=== PATIENT | female | born 1930 | race African-American/Black ===

== ENCOUNTER 2016-11-14 19:15 | Inpatient (IN) | payer MEDICAID, MEDICARE ==
[~2016-11-14] VITALS: Ht 170.2 cm; Wt 70.3 kg
[~2016-11-14 19:15] MED LIST: ALBU2.5V13 IH; ALEN70TA46 PO; ASPI-518 PO; BENZ100C86 PO; CALC-586 PO; CHOL100026 PO; DILT120T13 PO; EZET1TAB36 PO; FLUT1DIS3 IH; GUAI600T PO; HYDR12.54 PO; LETR2.5T3 PO; LEVO250T2 PO; MONT10TA21 PO; MULT-783 PO; P20 PO; RAMI10CA19 PO; TESS PO; THEO200T37 PO; TIOT18CA3 IH
[2016-11-14 20:17] LABS: HEMATOCRIT. 31.4 % (36.0-48.0); HEMOGLOBIN. 10.5 g/dL (12.0-16.0); MEAN CORPUSCULAR HEMOGLOBIN 26.9 pg (28.0-32.0); MEAN CORPUSCULAR VOLUME 80.1 fL (81.0-99.0); MEAN PLATELET VOLUME 8.9 fl (7.4-10.4); PLATELET 128 x1000/uL (130-400); RED BLOOD CELL COUNT 3.92 mill/uL (4.2-5.4); RED CELL DISTRIBUTION WIDTH 15.6 % (11.6-14.6)
[2016-11-14 20:23] LABS: INR 0.9; PROTHROMBIN TIME 9.7 sec
[2016-11-14 20:32] LABS: CARBON DIOXIDE 30 mEq/L (21-32); CHLORIDE 104 mEq/L (98-107); TROPONIN I < 0.02 ng/mL (0.00-0.04)
[2016-11-14 21:00] LABS: PLATELET ESTIMATE NORMAL
[2016-11-14] MEDS ORDERED: LEVOFLOXACIN 750MG PREMIX 150 ML IV ONE (21:00)
[2016-11-14] MEDS ORDERED: ALBUTEROL (0.083%) 2.5MG/3ML NEB HHN STA (22:49)
[2016-11-15] VITALS (7 sets, daily range): BP systolic 97–157; BP diastolic 63–92
[2016-11-15] MEDS: IPRATROPIUM/ALBUTEROL 0.5-3(2.5)MG/3ML NEB HHN SCH ×4 (00:55→20:49)
[2016-11-15] MEDS ORDERED: DIPHENHYDRAMINE 50MG/ML VIAL IV PRN (01:00)
[2016-11-15] MEDS ORDERED: BENZONATATE 100MG CAPSULE PO PRN (01:00)
[2016-11-15] MEDS ORDERED: ACETAMINOPHEN 325MG TABLET PO PRN (01:00)
[2016-11-15] MEDS ORDERED: IPRATROPIUM/ALBUTEROL 0.5-3(2.5)MG/3ML NEB INH PRN (01:00)
[2016-11-15] MEDS ORDERED: ONDANSETRON HCL 4MG/2ML VIAL IV PRN (01:00)
[2016-11-15] MEDS ORDERED: MAGNESIUM/ALUMINUM HYDROXIDE/SIMETHICONE 30ML UDC PO PRN (01:00)
[2016-11-15] MEDS ORDERED: CLONIDINE 0.1MG TABLET PO PRN (01:00)
[2016-11-15] MEDS ORDERED: HYDROCODONE/ACETAMINOPHEN 5/325MG TABLET PO PRN (01:00)
[2016-11-15] MEDS: SODIUM CHLORIDE 0.9% INJ 3ML FLUSH IVF SCH ×3 (06:24→20:55)
[2016-11-15] MEDS ORDERED: PREDNISONE 20MG TABLET PO SCH (09:00)
[2016-11-15] MEDS ORDERED: MONTELUKAST SODIUM 10MG TABLET PO SCH (09:00)
[2016-11-15] MEDS: GUAIFENESIN 600MG ER TABLET PO SCH ×2 (10:15→17:40)
[2016-11-15] MEDS: CHOLECALCIFEROL (D3) 1000 UNIT TABLET PO SCH (10:16)
[2016-11-15] MEDS: ENOXAPARIN 40MG/0.4ML SYR SUBCUT SCH (10:17)
[2016-11-15] MEDS: DILTIAZEM HCL 120MG CAPSULE SR 12HR PO SCH ×2 (10:33→20:42)
[2016-11-15 11:00] LABS: T4 FREE 1.19 ng/dL (0.76-1.46)
[2016-11-15] MEDS ORDERED: IPRATROPIUM/ALBUTEROL 0.5-3(2.5)MG/3ML NEB HHN SCH (16:00)
[2016-11-15 16:03] LABS: CREATINE KINASE 77 IU/L (26-192); CREATINE KINASE MB FRACTION 0.9 ng/mL (0.5-3.6); TROPONIN I < 0.02 ng/mL (0.00-0.04)
[2016-11-15 20:39] LABS: CLARITY URINE CLEAR (CLEAR); COLOR URINE YELLOW (YELLOW); SPECIFIC GRAVITY URINE 1.013 (1.005-1.030)
[2016-11-15 20:40] LABS: GLUCOSE URINE 1+ (NEGATIVE); KETONES URINE NEGATIVE (NEGATIVE); LEUKOCYTE ESTERASE URINE NEGATIVE (NEGATIVE); NITRITE URINE NEGATIVE (NEGATIVE); OCCULT BLOOD URINE NEGATIVE (NEGATIVE); PROTEIN URINE NEGATIVE (NEGATIVE); UROBILINOGEN URINE 0.2 E.U./dL (0.2-1.0)
[2016-11-15] MEDS: BUDESONIDE 0.5MG/2ML NEB HHN SCH (20:49)
[2016-11-15] MEDS ORDERED: LEVOFLOXACIN 750MG PREMIX 150 ML IV SCH (21:00)
[2016-11-15 23:27] LABS: CREATINE KINASE 65 IU/L (26-192); CREATINE KINASE MB FRACTION 0.9 ng/mL (0.5-3.6); TROPONIN I < 0.02 ng/mL (0.00-0.04)
[2016-11-16] VITALS: BP 130/161
[2016-11-16 04:00] VITALS: BP 117/64
[2016-11-16] MEDS: SODIUM CHLORIDE 0.9% INJ 3ML FLUSH IVF SCH ×3 (06:36→22:10)
[2016-11-16 06:53] LABS: CREATINE KINASE 63 IU/L (26-192); CREATINE KINASE MB FRACTION 0.8 ng/mL (0.5-3.6); TROPONIN I < 0.02 ng/mL (0.00-0.04)
[2016-11-16 08:00] VITALS: BP 132/77
[2016-11-16] MEDS: ENOXAPARIN 40MG/0.4ML SYR SUBCUT SCH (08:25)
[2016-11-16] MEDS: CHOLECALCIFEROL (D3) 1000 UNIT TABLET PO SCH (08:26)
[2016-11-16] MEDS: DILTIAZEM HCL 120MG CAPSULE SR 12HR PO SCH ×2 (08:26→22:10)
[2016-11-16] MEDS: GUAIFENESIN 600MG ER TABLET PO SCH ×2 (08:26→17:09)
[2016-11-16] MEDS: BUDESONIDE 0.5MG/2ML NEB HHN SCH ×2 (09:10→20:25)
[2016-11-16] MEDS: IPRATROPIUM/ALBUTEROL 0.5-3(2.5)MG/3ML NEB HHN SCH ×4 (09:10→20:26)
[2016-11-16 12:00] VITALS: BP 126/74
[2016-11-16 13:19] LABS: HEMOGLOBIN. 10.7 g/dL (12.0-16.0); MEAN CORPUSCULAR HEMOGLOBIN 26.7 pg (28.0-32.0); MEAN CORPUSCULAR VOLUME 79.6 fL (81.0-99.0); MEAN PLATELET VOLUME 8.6 fl (7.4-10.4); PLATELET 147 x1000/uL (130-400); RED BLOOD CELL COUNT 4.02 mill/uL (4.2-5.4); RED CELL DISTRIBUTION WIDTH 15.3 % (11.6-14.6)
[2016-11-16] MEDS: METHYLPREDNISOLONE SOD SUCC 40 MG/ML VIAL IV SCH ×2 (13:50→22:10)
[2016-11-16] MEDS: GUAIFENESIN 200MG/10ML SUGAR FREE UDC PO PRN (13:52)
[2016-11-16 13:53] LABS: CARBON DIOXIDE 32 mEq/L (21-32); CHLORIDE 103 mEq/L (98-107)
[2016-11-16 16:00] VITALS: BP 130/87
[2016-11-16 20:00] VITALS: BP 134/80
[2016-11-16] MEDS ORDERED: POTASSIUM CHLORIDE 20MEQ TABLET SR PO NR (20:45)
[2016-11-16 20:57] LABS: PLATELET ESTIMATE NORMAL
[2016-11-17] VITALS (7 sets, daily range): BP systolic 96–154; BP diastolic 58–87
[2016-11-17] MEDS: IPRATROPIUM/ALBUTEROL 0.5-3(2.5)MG/3ML NEB HHN SCH ×5 (00:49→15:46)
[2016-11-17] MEDS: GUAIFENESIN 200MG/10ML SUGAR FREE UDC PO PRN (03:28)
[2016-11-17] MEDS: METHYLPREDNISOLONE SOD SUCC 40 MG/ML VIAL IV SCH ×2 (06:00→13:58)
[2016-11-17] MEDS: SODIUM CHLORIDE 0.9% INJ 3ML FLUSH IVF SCH ×2 (06:02→14:08)
[2016-11-17] MEDS: ENOXAPARIN 40MG/0.4ML SYR SUBCUT SCH (08:52)
[2016-11-17] MEDS: GUAIFENESIN 600MG ER TABLET PO SCH ×2 (08:53→16:29)
[2016-11-17] MEDS: DILTIAZEM HCL 120MG CAPSULE SR 12HR PO SCH (08:53)
[2016-11-17] MEDS: CHOLECALCIFEROL (D3) 1000 UNIT TABLET PO SCH (08:53)
== END 2016-11-17 19:40 | disposition home or self-care (01) | DRG 871 ==
LOC: ER 19:15 → 5WST 21:02 → EDBEDREQTM 21:05 → EDBEDREQ 21:05 → ENRESERV 22:31
PROVIDERS: ADMIT Internal Medicine; ATTEND Internal Medicine
DX: A41.9 Sepsis, unspecified organism (principal); J18.9 Pneumonia, unspecified organism; J96.00 Acute respiratory failure, unspecified whether with hypoxia or hypercapnia; J44.0 Chronic obstructive pulmonary disease with (acute) lower respiratory infection; C34.90 Malignant neoplasm of unspecified part of unspecified bronchus or lung; I50.32 Chronic diastolic (congestive) heart failure; E78.00 Pure hypercholesterolemia, unspecified; E78.5 Hyperlipidemia, unspecified; I11.0 Hypertensive heart disease with heart failure; M19.90 Unspecified osteoarthritis, unspecified site; J44.9 Chronic obstructive pulmonary disease, unspecified; I27.2 Other secondary pulmonary hypertension; Z80.0 Family history of malignant neoplasm of digestive organs; Z82.49 Family history of ischemic heart disease and other diseases of the circulatory system; Z85.3 Personal history of malignant neoplasm of breast; Z87.891 Personal history of nicotine dependence; Z92.3 Personal history of irradiation; Z90.2 Acquired absence of lung [part of]; Z79.2 Long term (current) use of antibiotics; Z79.82 Long term (current) use of aspirin; Z79.899 Other long term (current) drug therapy; Z72.89 Other problems related to lifestyle
CPT/HCPCS: 36415; 71010; 71275; 80048; 80053; 80061; 81001; 82550; 82553; 83036; 83735; 83880; 84439; 84443; 84484; 85025; 85379; 85610; 87086; 93005; 93306; 93970; 94620; 94640; 96365; 96366; 99285; J1650; J1956; J2920; J7040; J7512; J7611; J7620; J7626